=== PATIENT | female | born 1960 | race Caucasian/White ===

== ENCOUNTER → 2020-05-02 | Outpatient (CLI) | payer SELFPAY | LOC: M LABSMTC 12:59 | PROVIDERS: ATTEND Pediatrics | DX: Z20.822 Contact with and (suspected) exposure to COVID-19 (principal) ==

== ENCOUNTER 2023-12-22 22:37 | Emergency (ER) | payer BC ==
[~2023-12-22] VITALS: Ht 167.6 cm; Wt 68.2 kg
[2023-12-22 22:47] VITALS: BP 145/78; TEMP 98.4; O2SAT 98
[2023-12-22] MEDS: BOOSTRIX VACCINE (TETANUS/DIPHTH/ACEL. PERTUSSIS) 0.5ML SYR IM ONE (23:16)
[2023-12-23] MEDS: LIDOCAINE 1% MDV 20ML VIAL SC ONE (00:07)
== END 2023-12-23 00:48 | disposition home or self-care (01) ==
LOC: EDBD 22:37 → M ED 22:37
DX: S81.811A Laceration without foreign body, right lower leg, initial encounter (principal); Y92.019 Unspecified place in single-family (private) house as the place of occurrence of the external cause; Y93.9 Activity, unspecified; Y99.9 Unspecified external cause status; F10.10 Alcohol abuse, uncomplicated; Z23 Encounter for immunization

== ENCOUNTER 2023-12-27 19:05 | Emergency (ER) | payer BC ==
[~2023-12-27] VITALS: Ht 167.6 cm; Wt 77.3 kg
[2023-12-27 19:06] VITALS: BP 168/84; TEMP 98.7; O2SAT 98
== END 2023-12-27 23:00 | disposition left against medical advice (07) ==
LOC: M ED 19:05
DX: Z53.21 Procedure and treatment not carried out due to patient leaving prior to being seen by health care provider (principal)